=== PATIENT | female | born 1970 | race Hispanic/Latino ===

== ENCOUNTER 2017-11-24 17:19 | Emergency (ER) | payer OTHER ==
[2017-11-24] MEDS ORDERED: DEXAMETHASONE SOD PHOSPHATE 10MG/ML 1ML VIAL ONE (17:40)
[2017-11-24] MEDS ORDERED: ACETAMINOPHEN EXTRA STRENGTH 500 MG TABLET ONE (17:40)
[2017-11-24] MEDS ORDERED: IPRATROPIUM/ALBUTEROL SULFATE 3 ML SOLUTION IH ONE (17:41)
[2017-11-24 17:47] LABS: BASOPHILS % (AUTO) 0.6 % (0.0-5.0); EOSINOPHILS % (AUTO) 1.8 % (0.0-8.0); HEMATOCRIT 43.6 % (36-48); LYMPHOCYTES % (AUTO) 13.2 % (21.0-51.0); MEAN CORPUSCULAR HEMOGLOBIN 31.3 pg (27.0-33.0); MEAN CORPUSCULAR HGB CONC 35.3 g/dL (32.0-36.0); MEAN CORPUSCULAR VOLUME 88.7 fL (79-99); MONOCYTES % (AUTO) 6.2 % (3.0-13.0); NEUTROPHILS % (AUTO) 78.2 % (40.0-77.0); PLATELET COUNT (AUTO) 170 K/uL (130-400); RED BLOOD CELL COUNT(AUTO) 4.91 MIL/uL (4.00-5.50); RED CELL DISTRIBUTION WIDTH 13.5 % (11.0-15.5); WHITE BLOOD COUNT (AUTO) 10.7 K/uL (4.8-10.8)
[2017-11-24 17:59] LABS: CREATININE 0.7 mg/dL (0.5-1.5)
[2017-11-24 18:04] LABS: ALBUMIN 3.2 g/dL (3.5-5.0); BILIRUBIN,TOTAL 1.3 mg/dL (0.2-1.0); TOTAL PROTEIN, SERUM 7.3 g/dL (6.0-8.3)
[2017-11-24] MEDS ORDERED: IBUPROFEN 400 MG TABLET ONE (18:46)
== END 2017-11-24 19:11 | disposition home or self-care (01) ==
LOC: EDH 17:19
DX: J20.9 Acute bronchitis, unspecified (principal); R50.9 Fever, unspecified; I10 Essential (primary) hypertension; Z88.5 Allergy status to narcotic agent
CPT/HCPCS: 36415; 71046; 80053; 85025; 94640; 96372; 99285; J1100

== ENCOUNTER 2018-10-22 12:37 | Emergency (ER) | payer OTHER | END 2018-10-22 14:09 | disposition home or self-care (01) | LOC: EDH 12:37 | DX: R22.0 Localized swelling, mass and lump, head (principal); I10 Essential (primary) hypertension; Z88.6 Allergy status to analgesic agent | CPT/HCPCS: 99281 ==

== ENCOUNTER 2022-10-12 22:31 | Emergency (ER) | payer BC ==
[~2022-10-12] VITALS: Ht 160 cm; Wt 136.1 kg
[2022-10-12 23:25] LABS: EOSINOPHILS % (AUTO) 2.8 % (0.0-8.0); HEMATOCRIT 39.7 % (36-48); LYMPHOCYTES % (AUTO) 38.2 % (21.0-51.0); MEAN CORPUSCULAR HEMOGLOBIN 29.9 pg (27.0-33.0); MEAN CORPUSCULAR HGB CONC 33.2 g/dL (32.0-36.0); MEAN CORPUSCULAR VOLUME 89.8 fL (79-99); NEUTROPHILS % (AUTO) 48.9 % (40.0-77.0); PLATELET COUNT (AUTO) 158 K/uL (130-400); RED BLOOD CELL COUNT(AUTO) 4.42 MIL/uL (4.00-5.50); RED CELL DISTRIBUTION WIDTH 13.2 % (11.0-15.5); WHITE BLOOD COUNT (AUTO) 6.9 K/uL (4.8-10.8)
[2022-10-12] MEDS ORDERED: ONDANSETRON 4MG INJ IVP ONE (23:30)
[2022-10-12 23:43] LABS: ALBUMIN 2.4 g/dL (3.5-5.0); CREATININE 0.6 mg/dL (0.5-1.5); TOTAL PROTEIN, SERUM 5.3 g/dL (6.0-8.3)
[2022-10-12 23:45] LABS: POTASSIUM 2.8 mmol/L (3.5-5.1)
[2022-10-13] MEDS ORDERED: POTASSIUM BICARB/CIT AC 25 MEQ TABLET.EFF PO ONE
[2022-10-13] MEDS ORDERED: 0.9%NACL 1000ML 1,000 ML IV SCH (00:30)
[2022-10-13] MEDS ORDERED: KCL 20 MEQ ERTAB PO ONE (02:00)
[2022-10-13 04:33] VITALS: BP 119/65
== END 2022-10-13 04:52 | disposition home or self-care (01) ==
LOC: EDH 22:31
DX: I10 Essential (primary) hypertension (principal); E87.6 Hypokalemia; F41.9 Anxiety disorder, unspecified; Z79.899 Other long term (current) drug therapy; Z88.5 Allergy status to narcotic agent; Z90.49 Acquired absence of other specified parts of digestive tract
CPT/HCPCS: 99284; 96374; 84484; 84132 ×2; 80053; 85025; 36415 ×2; J2405; J7030

== ENCOUNTER 2022-10-29 02:09 | Emergency (ER) | payer BC ==
[~2022-10-29] VITALS: Ht 160 cm; Wt 140.2 kg
[2022-10-29 03:21] LABS: EOSINOPHILS % (AUTO) 3.1 % (0.0-8.0); HEMATOCRIT 40.8 % (36-48); LYMPHOCYTES % (AUTO) 34.5 % (21.0-51.0); MEAN CORPUSCULAR HEMOGLOBIN 29.8 pg (27.0-33.0); MEAN CORPUSCULAR HGB CONC 33.6 g/dL (32.0-36.0); MEAN CORPUSCULAR VOLUME 88.9 fL (79-99); MONOCYTES % (AUTO) 8.5 % (3.0-13.0); NEUTROPHILS % (AUTO) 52.7 % (40.0-77.0); PLATELET COUNT (AUTO) 130 K/uL (130-400); RED BLOOD CELL COUNT(AUTO) 4.59 MIL/uL (4.00-5.50); RED CELL DISTRIBUTION WIDTH 13.2 % (11.0-15.5); WHITE BLOOD COUNT (AUTO) 5.9 K/uL (4.8-10.8)
[2022-10-29 03:30] LABS: CREATININE 0.7 mg/dL (0.5-1.5); POTASSIUM 3.6 mmol/L (3.5-5.1)
[2022-10-29 03:35] LABS: TOTAL PROTEIN, SERUM 6.5 g/dL (6.0-8.3)
[2022-10-29 05:11] VITALS: BP 148/45
== END 2022-10-29 05:37 | disposition home or self-care (01) ==
LOC: EDH 02:09
DX: R07.9 Chest pain, unspecified (principal); I10 Essential (primary) hypertension; I48.91 Unspecified atrial fibrillation; Z88.8 Allergy status to other drugs, medicaments and biological substances; Z90.710 Acquired absence of both cervix and uterus; Z90.49 Acquired absence of other specified parts of digestive tract
CPT/HCPCS: 36415; 71045; 80053; 84484; 85025; 93005

== ENCOUNTER 2025-04-04 17:12 | Inpatient (IN) | payer BC ==
[~2025-04-04] VITALS: Ht 160 cm; Wt 139.7 kg
--- NOTE | 2025-04-04 17:51 | ERN ---
General Chief Complaint: Palpitations Stated Complaint: PALPITATIONS Time Seen by MD: 17:16 History of Present Illness Initial Comments 55-year-old female brought in by EMS from home for nausea or vomiting diarrhea palpitations and atrial fibrillation with RVR. Patient reports beginning earlier today she felt body aches, she has had many episodes of vomiting throughout the day as well as watery diarrhea. She reports some generalized abdominal cramping and discomfort. She has been unable to eat. EMS found stable blood pressure, but her heart rate has been ranging from 120-150, atrial fibrillation, on the monitor. Patient reports that she has been feeling palpitations on and off recently, but she has never been diagnosed with the atrial fibrillation. She takes metoprolol for hypertension. Allergies: Coded Allergies: codeine (Unverified Allergy, Unknown, 10/12/22) eucalyptus (Unverified Allergy, Unknown, 10/12/22) Past Medical History Past Medical History: A-Fib, Anxiety, Hypertension Past Surgical History: Hysterectomy, Cholecystectomy, Family History Family History: HTN Social History Social History: Negative, Lives with family ROS Dictation CONSTITUTIONAL: No chills, no fever, no weakness, no diaphoresis, no malaise. HEAD/FACE: No signs of trauma. EENT: No eye pain, no blurred vision, no tearing, no double vision, no ear pain, no ear discharge, no nose pain, no nasal congestion, no throat pain, no throat swelling, no mouth pain. RESPIRATORY: No cough, no orthopnea, no SOB, no stridor, no wheezing. CARDIOVASCULAR: No chest pain, no edema, palpitations GASTROINTESTINAL/ABDOMINAL: N generalized abdominal pain nausea vomiting and watery diarrhea. GENITOURINARY: No abnormal discharge, no dysuria, no frequent urination, no hematuria. No complaints of pain in the genitals. MUSCULOSKELETAL: No back pain, no gout, no joint pain, no joint swelling, no muscle pain, no muscle stiffness, no neck pain. INTEGUMENTARY: No change in color, no change in hair/nails, no dryness, no lesion, no lumps, no rash. NEUROLOGICAL/PSYCH: No anxiety, not depressed, no emotional problem, no headache, no numbness, no pre-existing deficit, no history of seizures, no tremors, no weakness. HEMATOLOGIC/LYMPHATIC: Not anemic, no history of blood clots, no apparent bleeding, no bruising, glands not swollen. All Systems Negative, Except as Noted. Physical Exam Physical Exam Dictation VITAL SIGNS: Reviewed. GENERAL APPEARANCE: Alert, oriented x3, no acute distress, obese. HEAD AND FACE: Non-traumatic. EYES: PERRL, pink conjunctivas, eyelid no trauma, anterior chamber clear. EARS: Pinnas intact and no signs of trauma or erythema. Ear canals clear and no discharge. TMs no erythema. NOSE: No discharge, no bleeding. OROPHARYNX: Mouth normal, teeth no caries, tongue pink. Pharynx clear, no erythema. Tonsils no exudates, no abscesses noted. Mucous membrane moist. NECK: Supple, non-tender, no thyromegaly, no masses, no JVD, no bruits. BREAST: Deferred. CHEST: No tenderness, no crepitus, no paradoxical movement, no retractions. LUNGS: Clear, well-ventilated, symmetric, no rales, no wheezing, no rhonchi, no stridor, good breath sounds bilaterally. HEART: Regular rate, regular rhythm, no murmur, no gallops. VASCULAR: No peripheral edema. ABDOMEN: Soft, positive bowel sounds, nondistended, no guarding, nontender, no rebound, no masses no hepatomegaly, no splenomegaly, no Weiss's sign, no hernias. RECTAL: Deferred. GENITAL: Deferred. NEUROLOGICAL: Normal speech, gross motor function intact, gross sensory function intact. MUSCULOSKELETAL: Neck nontender, full range of motion, back nontender, full range of motion. EXTREMITIES: Nontender, full range of motion. SKIN: Color pink, dry, no turgor, no rash, no lacerations, no abrasions, no contusions. LYMPHATICS: Deferred. Results Laboratory and Microbiology Lab and Micro Result Laboratory Tests Test 04/04/25 17:59 04/04/25 19:45 White Blood Count 6.1 K/uL (4.8-10.8) Red Blood Count 4.90 MIL/uL (4.00-5.50) Hemoglobin 15.0 g/dL (12.0-16.0) Hematocrit 44.7 % (36-48) Mean Corpuscular Volume 91.2 fL (79-99) Mean Corpuscular Hemoglobin 30.6 pg (27.0-33.0) Mean Corpuscular Hemoglobin Concent 33.6 g/dL (32.0-36.0) Red Cell Distribution Width 13.4 % (11.0-15.5) Platelet Count 148 K/uL (130-400) Mean Platelet Volume 12.0 fL (7.5-10.5) H Immature Granulocyte % (Auto) 0.3 % (0-1) Neutrophils (%) (Auto) 70.5 % (40.0-77.0) Lymphocytes (%) (Auto) 22.6 % (21.0-51.0) Monocytes (%) (Auto) 5.1 % (3.0-13.0) Eosinophils (%) (Auto) 1.0 % (0.0-8.0) Basophils (%) (Auto) 0.5 % (0.0-5.0) Neutrophils # (Auto) 4.3 K/uL (1.8-7.7) Lymphocytes # (Auto) 1.4 K/uL (1.0-4.8) Monocytes # (Auto) 0.3 K/uL (0.1-1.0) Eosinophils # (Auto) 0.06 K/uL (0.00-0.70) Basophils # (Auto) 0.03 K/uL (0.00-0.20) Absolute Immature Granulocyte (auto 0.02 K/uL (0-1) Nucleated Red Blood Cells 0.0 % (0.0-0.19) Prothrombin Time 12.3 SEC (9.6-11.6) H Prothromb Time International Ratio 1.18 (0.85-1.15) H Activated Partial Thromboplast Time 28.7 SEC (26.3-35.5) Sodium Level 140 mmol/L (136-145) Potassium Level 3.4 mmol/L (3.5-5.1) L Chloride Level 105 mmol/L (101-111) Carbon Dioxide Level 29 mmol/L (21-32) Blood Urea Nitrogen 8 mg/dL (7-18) Creatinine 0.6 mg/dL (0.5-1.0) Glomerular Filtration Rate Calc 105 mL/min (>90) Random Glucose 90 mg/dL (70-105) Lactic Acid Level 1.5 mmol/L (0.8-2.5) Total Calcium 8.8 mg/dL (8.5-10.1) Magnesium Level 1.90 mg/dL (1.80-2.40) Total Creatine Kinase 64 U/L (21-232) Troponin I High Sensitivity 29 ng/L (4-50) Lipase 20 U/L (16-77) Urine Color YELLOW (YELLOW) Urine Appearance CLOUDY (CLEAR) H Urine pH 7.0 (5.0-8.0) Urine Specific [place] 1.014 (1.001-1.031) Urine Protein NEGATIVE mg/dL (NEGATIVE) Urine Glucose (UA) NEGATIVE mg/dL (NEGATIVE) Urine Ketones NEGATIVE mg/dL (NEGATIVE) Urine Occult Blood SMALL (NEGATIVE) H Urine Nitrate 2+ (NEGATIVE) H Urine Bilirubin NEGATIVE mg/dL (NEGATIVE) Urine Urobilinogen 0.2 mg/dL (0.2-1.0) Urine Leukocyte Esterase 75 Yan[place]/uL (NEGATIVE) H Urine RBC 2-5 /HPF (0-1) H Urine WBC 11-25 /HPF (0-1) H Urine Squamous Epithelial Cells FEW /HPF (0-2) Urine Bacteria RARE /HPF (None Seen) Labs Reviewed?: Yes EKG/XRAY/US/CT/MRI CT Scan Comment REASON: Abdominal Pain ORDERING PHYSICIAN: JEAN CONROY DO PROCEDURE: ABD PEL W - CT ABDOMEN/PELVIS W/CONTRAST EXAM: CT Abdomen and Pelvis with IV contrast CLINICAL HISTORY: Pain. TECHNIQUE: Postcontrast thin collimated axial CT images of the abdomen and pelvis were obtained with sagittal and coronal reformatted images also submitted. CT scan is done according to ALARA (As Low As Reasonably Achievable). COMPARISON: None. FINDINGS: The included lungs are clear. Mild fatty liver. Status post cholecystectomy. No focal abnormality within the pancreas, spleen, adrenals, or kidneys. The urinary bladder is empty and suboptimally evaluated. Presumed post-hysterectomy status. Unremarkable left ovary. There is a 6 x 9 x 10 cm nonenhancing cyst in the right ovary without septation, calcification or enhancing mural nodule. Tiny hiatus hernia. No obvious bowel wall thickening, dilatation, or obstruction. Unremarkable appendix. Grossly unremarkable abdominal vessels. No pathological lymphadenopathy in the abdomen or pelvis. No ascites or pneumoperitoneum. No acute bony abnormality is evident. Degenerative osseous changes. IMPRESSIONS: Right ovarian cyst, recommend an ultrasound of the pelvis for further evaluation. Mild fatty liver. /Sherrill DICTATED BY: JAMIL GONZALEZ Jr., MD DATE: 04/05/25143 ELECTRONICALLY SIGNED BY: JAMIL GONZALEZ Jr., MD DATE: 04/05/25143 MDM : Differential diagnosis: Gastroenteritis, diverticulitis, colitis, cholecystitis, appendicitis, pelvic pain 8:00 p.m. patient was signed out to me by a.m. physician This is a 55-year-old morbidly obese female who presented to the emergency room with complaints of dizziness palpitations nausea vomitings diarrhea. Temperature 98.4 pulse 164 respirations 20 blood pressure 113/83 with a pulse oximetry of 98% on room air she also reported some shortness Of breath associated with the palpitations. Patient stated that she has had intermittent paroxysmal atrial fibrillation and every time she saw the physician the heart would reviewed back to normal sinus rhythm and hence she was never placed on any anticoagulation. Workup included CBC with she is with a normal limits BNP 7 is with a normal limits. Troponins were 29 lipase was 20 chest x-ray showed mild cardiomegaly but otherwise no acute infiltrates or effusions noted. CT scan of the abdomen and pelvis was requested before 8:00 p.m. and was not done until midnight. 1:[address] abdomen and pelvis resulted-large right ovarian cyst was noted but otherwise no acute abnormalities were seen. Radiologist recommended pelvic ultrasound which will be requested With pain management the heart rate has improved to 70s. I have updated the patient and her both of them on the CT scan findings and her presentation likely is related to gastroenteritis with a volume depletion, atrial fibrillation with rapid ventricular response and I recommended monitoring her for the next 24-48 hours her atrial fibrillation and determine if she needs long-term anticoagulation. She is agreeable Rationale: Tests considered and ordered secondary to shared decision making include: labs, ECG and radiology Previous outside records reviewed: Old ER visits. Risk of complication and/or morbidity or mortality of patient management: None Medications-Per medication reconciliation Need for hospitalization: Patient does meet criteria for hospitalization. Need for emergency major/minor surgery: No There are no social concerns with this patient. Prescription drug management Prescriptions will include symptomatic care Patient's prior external medical records from other ER visits were reviewed by me as indicated. Prior testing and results from previous visits were reviewed. Prior tests were taken into account with medical decision making and resource utilization, independent historian/historians were used to obtain complete medical history. I independently interpreted the test that were performed, results were reviewed by me and considered findings on radiology if ordered. Medical management and examination interpretation discussions were had by me with other qualified healthcare professionals as indicated for the patient's care. ED Course Orders Procedure Category Date Status Time 12 Lead Ekg Tracing- EKG 04/04/25 Complete Technical 17:14 Cbc With Differential LAB 04/04/25 Complete 17:19 Troponin I High LAB 04/04/25 Complete Sensitivity 17:19 Urinalysis Profile LAB 04/04/25 Complete 17:19 Ct Abdomen/Pelvis CT 04/04/25 Resulted W/Contrast 17:19 Lactated Ringers PHA 04/04/25 Complete 1000ml (Lactated 17:30 Ondansetron 4mg Inj PHA 04/04/25 Complete (Zofran 4mg Inj) 17:30 Creatine Kinase, Total LAB 04/04/25 Complete 17:19 Chest 1vw RAD 04/04/25 Resulted 17:19 Lipase LAB 04/04/25 Complete 17:19 Basic Metabolic Panel LAB 04/04/25 Complete 17:19 Prothrombin Time With LAB 04/04/25 Complete INR 17:19 Magnesium LAB 04/04/25 Complete 17:19 Partial LAB 04/04/25 Complete Thromboplastin Time 17:19 Lactic Acid LAB 04/04/25 Complete 17:19 Blood Cult ALFREDA 04/04/25 In Process 17:19 Metoprolol Tartrate PHA 04/04/25 Complete (Lopressor) 17:30 Culture Urine ALFREDA 04/04/25 Complete 20:16 Morphine 4mg Syg PHA 04/04/25 Complete (Morphine 4mg Syg) 23:00 Iohexol (Omnipaque) PHA 04/04/25 Complete 23:14 Lactated Ringers PHA 04/04/25 Complete 1000ml (Lactated 00:00 12 Lead Ekg Tracing- EKG 04/05/25 Complete Technical 02:06 Edm Admit Bridge Order ADM 04/05/25 Transmitted 02:30 Current Medications Medications (Trade) Dose Ordered Sig/Hermilo Route PRN Reason Start Time Stop Time Status Last Admin Dose Admin Iohexol (Omnipaque) 35,000 mg STK-MED ONCE IV 04/04/25 23:14 04/04/25 23:14 DC Lactated Ringer's 1,000 ml @ 0 mls/hr ONCE ONCE IV 04/04/25 17:30 04/04/25 17:31 DC 04/04/25 18:53 Lactated Ringer's (Lactated Ringers 1000ml) 1,000 ml ONCE ONCE IV 04/04/25 00:00 04/04/25 23:55 DC 04/05/25 00:10 Metoprolol Tartrate (loprESSOR) 5 mg ONCE ONCE IV 04/04/25 17:30 04/04/25 17:31 DC 04/04/25 18:52 Morphine Sulfate (morPHINE 4MG SYG) 4 mg ONCE ONCE IVP 04/04/25 23:00 04/04/25 23:01 DC 04/04/25 22:50 Ondansetron HCl (zoFRAN 4MG INJ) 4 mg ONCE ONCE IVP 04/04/25 17:30 04/04/25 17:31 DC 04/04/25 18:52 Vital Signs Date Time Temp Pulse Resp B/P (MAP) Pulse Ox O2 Delivery O2 Flow Rate FiO2 04/05/25 00:00 94 Room Air* 0 04/05/25 00:00 98.2 72 20 133/49 96 Room Air* 0 04/04/25 19:03 113 26 153/81 96 Room Air* 0 04/04/25 18:52 129 162/87 04/04/25 17:15 98.6 164 20 113/83 96 Room Air We will perform diagnostic labs, advanced imaging and administer medications according to the patient's complaint. Once the results are available, will review and personally interpreted the labs to rule out any acute life- threatening emergency the trach require immediate intervention and treatment. I will then re-evaluate the patient after treatment and diagnostic exams have return to determine whether the patient requires any further testing, can safely be discharged home or need further admission to hospital for additional treatment and evaluation. 2:30 a.m. patient accepted by covering for Dr. Lin for admission to the hospital and further management DX & DISP Disposition: Inpatient Departure Impression: Primary Impression: Atrial fibrillation with RVR Additional Impressions: Gastroenteritis, Right ovarian cyst, Dehydration, Morbid obesity with BMI of 50.0-59.9, adult Critical Time: 30 minutes (Critical Care Procedure NoteAuthorized and Performed by: meTotal critical care time: Approximately 36 minutesDue to a high probability of clinically significant, life threatening deterioration, the patient required my highest level of preparedness to intervene emergently and I personally spent this critical care time directly and personally managing the patient. This critical care time included obtaining a history; examining the patient; pulse oximetry; ordering and review of studies; arranging urgent treatment with development of a management plan; evaluation of patient's response to treatment; frequent reassessment; and, discussions with other providers.This critical care time was performed to assess and manage the high probability of imminent, life-threatening deterioration that could result in multi-organ failure. It was exclusive of separately billable procedures and treating other patients and teaching time.Please see MDM section and the rest of the note for further information on patient assessment and treatment.) Condition: Stable Additional Instructions: Patient was informed of all the diagnostic labs and procedures conducted in the emergency room today and demonstrated understanding of the results. I personally reviewed and interpreted all the diagnostic exams performed in the ER today. The patient will be admitted to the hospital for further treatment and evaluation. Disposition-admit to facility Condition-stable/guarded Course-uncertain at this time Pain status-decreased Assessment-exam unchanged Admission Certification- I certify that the patients status is appropriate and is based on my best clinical judgment and the patient's condition as documented in the medical records Referrals: ANTONIETA LYNN (PCP) JEAN CONROY DO Apr 04, 2025 17:51 EAN MALDONADO MD Apr 05, 2025 01:17
[2025-04-04 18:08] LABS: IMMATURE GRANULOCYTE ABSOLUTE 0.02 K/uL (0-1); NUCLEATED RED BLOOD CELLS 0.0 % (0.0-0.19); PLATELET COUNT (AUTO) 148 K/uL (130-400); RED BLOOD CELL COUNT(AUTO) 4.90 MIL/uL (4.00-5.50); RED CELL DISTRIBUTION WIDTH 13.4 % (11.0-15.5); WHITE BLOOD COUNT (AUTO) 6.1 K/uL (4.8-10.8)
[2025-04-04 18:16] LABS: CREATININE 0.6 mg/dL (0.5-1.0); GLOMERULAR FILTR. RATE CALC 105.0 mL/min (>90); GLUCOSE,RANDOM 90.0 mg/dL (70-105); SODIUM SERUM 140.0 mmol/L (136-145); UREA NITROGEN, BLOOD 8.0 mg/dL (7-18)
[2025-04-04 18:26] LABS: INR 1.18 (0.85-1.15)
[2025-04-04 18:28] LABS: CREATINE KINASE, TOTAL 64.0 U/L (21-232)
[2025-04-04] MEDS: LACTATED RINGERS 1000ML 1,000 ML IV ONE (18:53)
--- NOTE | 2025-04-04 19:31 | HMCIMG ---
EXAM: XR Chest, 1 View. CLINICAL HISTORY: 55 year old female with chest pain. COMPARISON: XR Chest dated 01/31/2024. FINDINGS: LUNGS: The lungs are clear. No consolidation. PLEURAL SPACES: No pleural effusion or pneumothorax. HEART: Cardiomegaly is noted. The heart size is abnormal. BONES: No acute osseous abnormality. IMPRESSION: 1. No acute findings. 2. Cardiomegaly. 3. Findings are similar to prior XR Chest dated 01/31/2024. /Honor
[2025-04-04 20:14] LABS: APPEARANCE,URINE CLOUDY (CLEAR); GLUCOSE, URINE (UA) NEGATIVE (NEGATIVE); LEUKOCYTE ESTERASE ,URINE 75 Leu/uL (NEGATIVE); NITRATE,URINE 2+ (NEGATIVE); OCCULT BLOOD,URINE SMALL (NEGATIVE)
[2025-04-04 20:15] LABS: ADD UA MICROSCOPIC YES
[2025-04-04 20:17] LABS: SQUAMOUS EPITHELIAL CELL,UR FEW /HPF (0-2)
--- NOTE | 2025-04-04 21:12 | EKG ---
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 : 1970 Requested By: JEAN CONROY Order Number: [id number] Reading MD: Sanchez Lane Measurements Intervals [place] Rate: 137 P: 0 CT: 0 QRS: 24 QRSD: 83 T: -33 QT: 315 QTc: 477 Interpretive Statements Atrial fibrillation Low voltage, precordial leads Consider anteroseptal infarct Nonspecific repol abnormality, inferior leads Compared to ECG 01/31/2024 19:52:53 Low QRS voltage now present Myocardial infarct finding now present Early repolarization now present Sinus rhythm no longer present Electronically Signed On 04-07-2025 19:50:[address] Please click the below link to view image of tracing.
[2025-04-04] MEDS ORDERED: IOHEXOL 350 MG/ML 100ML INFUS..BTL IV ONE (23:14)
[2025-04-05] VITALS: O2SAT 94
--- NOTE | 2025-04-05 | NUR ---
Home Meds pending to be brought in by patient, patient knows them by name but cannot recall dosages
[2025-04-05] MEDS: LACTATED RINGERS 1000ML IV ONE (00:10)
--- NOTE | 2025-04-05 00:45 | HMCIMG ---
EXAM: CT Abdomen and Pelvis with IV contrast CLINICAL HISTORY: Pain. TECHNIQUE: Postcontrast thin collimated axial CT images of the abdomen and pelvis were obtained with sagittal and coronal reformatted images also submitted. CT scan is done according to ALARA (As Low As Reasonably Achievable). COMPARISON: None. FINDINGS: The included lungs are clear. Mild fatty liver. Status post cholecystectomy. No focal abnormality within the pancreas, spleen, adrenals, or kidneys. The urinary bladder is empty and suboptimally evaluated. Presumed post-hysterectomy status. Unremarkable left ovary. There is a 6 x 9 x 10 cm nonenhancing cyst in the right ovary without septation, calcification or enhancing mural nodule. Tiny hiatus hernia. No obvious bowel wall thickening, dilatation, or obstruction. Unremarkable appendix. Grossly unremarkable abdominal vessels. No pathological lymphadenopathy in the abdomen or pelvis. No ascites or pneumoperitoneum. No acute bony abnormality is evident. Degenerative osseous changes. IMPRESSIONS: Right ovarian cyst, recommend an ultrasound of the pelvis for further evaluation. Mild fatty liver. /Mai
[2025-04-05] MEDS: 0.9%NACL 1000ML 1,000 ML IV SCH (03:13)
[2025-04-05 04:00] VITALS: TEMP 98.2
--- NOTE | 2025-04-05 06:39 | EKG ---
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
[2025-04-05 07:14] LABS: IMMATURE GRANULOCYTE ABSOLUTE 0.01 K/uL (0-1); NUCLEATED RED BLOOD CELLS 0.0 % (0.0-0.19); PLATELET COUNT (AUTO) 131 K/uL (130-400); RED BLOOD CELL COUNT(AUTO) 4.39 MIL/uL (4.00-5.50); RED CELL DISTRIBUTION WIDTH 13.5 % (11.0-15.5); WHITE BLOOD COUNT (AUTO) 5.0 K/uL (4.8-10.8)
[2025-04-05 07:24] LABS: CREATININE 0.6 mg/dL (0.5-1.0); GLOMERULAR FILTR. RATE CALC 105.0 mL/min (>90); GLUCOSE,RANDOM 95.0 mg/dL (70-105); SODIUM SERUM 140.0 mmol/L (136-145); UREA NITROGEN, BLOOD 9.0 mg/dL (7-18)
[2025-04-05] MEDS: ENOXAPARIN SODIUM 30 MG/0.3 ML SQ SCH (09:04)
--- NOTE | 2025-04-05 14:45 | NUR ---
DCP:HOME Pt currently lives with her [place] [phone]. Pt does not have any DME, home health, or provider services. Pt states that she is able to complete ADLs independently. PCP is Dr. Kulwinder Lin and uses [facility] for any RX needs. At [place] pt will want to go home and family can assist with transportation. Addendum: 04/05/25 at 1449 by TIFFANIE MURDOCK SS Amended: Links added.
--- NOTE | 2025-04-05 21:19 | NUR ---
REPORT GIVEN TO SANTIAGO WHITE. PATIENT WILL BE TRANSFERRED TO ROOM 427. PATIENT [id number], RESPIRATIONS EVEN AND UNLABORED. NO S/S OF DISTRESS. ROOM AIR. AFEBRILE.
[2025-04-05 21:30] VITALS: BP 176/82; PULSE 59; RESP 16; TEMP 98.3
--- NOTE | 2025-04-05 21:44 | NUR ---
ABNORMAL POTASSIUM AND MAGNESIUM LEVELS CONTACTED DR. GRAY DUE TO NOTICING THAT PATIENT'S POTASSIUM AND MAGNESIUM LEVELS WERE BELOW HOSPITAL STANDARDS. ADVISED DR. GRAY OF PATIENT NEEDING PROTOCOL COVERAGE. PER DR. GRAY: OKAY TO START PATIENT ON POTASSIUM AND MAGNESIUM PROTOCOLS. ORDERS NOTED AND CARRIED OUT.
[2025-04-05] MEDS ORDERED: PoTASSium chl 10% ELIXIR 20MEQ 20 MEQ/15 ML UDCUP PO PRN (22:00)
[2025-04-05] MEDS ORDERED: METO-391 PO (22:32)
[2025-04-05] MEDS ORDERED: LEVO50TA11 PO (22:32)
--- NOTE | 2025-04-05 22:44 | NUR ---
HIGH BLOOD PRESSURE CONTACTED DR. GRAY FOR PATIENT'S ELEVATED BLOOD PRESSURE UPON ADMISSION SEE EMR. ADVISED NO PRN MEDICATION ON FILE AND REQUESTED TO RESUME HOME MEDICATIONS. PER DR. GRAY: HYDRALAZINE 10MG IVP EVERY 8 HOURS NEEDED FOR SYSTOLIC BLOOD PRESSURE OVER 150. ORDER NOTED AND CARRIED OUT.
--- NOTE | 2025-04-05 23:16 | HP ---
DATE OF SERVICE: 04/05/2025 HISTORY AND PHYSICAL PRESENTING COMPLAINT: Nausea, vomiting, diarrhea. HISTORY OF PRESENT ILLNESS: A 55-year-old female with history of morbid obesity, anxiety disorder, hypertension, presents to the hospital with nausea, diarrhea and palpitations. The patient's symptoms started on the day of admission. The patient denied hematochezia. Has some urinary symptoms. No hematuria. The patient presented to the emergency room and was found heart rate of 150. EKG shows AFib with RVR. The patient denies before and never saw a cardiology in the past. No sick contact. No recent travel. Urinalysis was found to be negative marginally low at 3.4. PAST MEDICAL HISTORY: 1. Hypertension. 2. Morbid obesity. 3. Anxiety disorder. PAST SURGICAL HISTORY: 1. Hysterectomy. 2. Cholecystectomy. 3. section. ALLERGIES: CODEINE. HOME MEDICATIONS: Reviewed. SOCIAL HISTORY: No alcohol or tobacco or illicit drug use. FAMILY HISTORY: Noncontributory. REVIEW OF SYSTEMS: Greater than 10 systems were reviewed, negative except as documented above. PHYSICAL EXAMINATION: GENERAL: On examination, young female, awake. VITAL SIGNS: Temperature 97.9, pulse 59, respiratory rate 18, blood pressure 116/70. EYES: No icterus. Pupils are equal and reactive. HENT: No oral thrush. Moist oral mucosa. NECK: Supple. No JVD or thyromegaly. LUNGS: Good air entry. No rales. No rhonchi. CARDIOVASCULAR: S1 and S2. Regular. ABDOMEN: Morbidly obese, soft, nontender. Bowel sound is present. CENTRAL NERVOUS SYSTEM: Awake, alert and oriented x3. No focal deficits. SKIN: No rashes. LYMPHATIC: No peripheral lymphadenopathy. BACK: No deformity. No pressure ulcer. MUSCULOSKELETAL: No joint swelling, erythema or tenderness. LABORATORY DATA: Sodium 140, potassium 4.4, BUN 8, creatinine 0.6. WBC 6.1, hemoglobin 15, platelet 148. Urinalysis; WBC 25 and leukocyte esterase 75. RADIOLOGY: CT of the abdomen and pelvis shows right ovarian cyst. ASSESSMENT: A 55-year-old female presented with nausea, vomiting and palpitations. CURRENT PROBLEMS INCLUDE: 1. Urinary tract infection. 2. Infectious gastroenteritis. 3. Atrial fibrillation. 4. Hypokalemia. 5. Dehydration. 6. Morbid obesity. 7. Hypertension. PLAN: 1. Admit the patient to medical floor with telemetry. 2. Start the patient on Lopressor. 3. Cardiology evaluation. 4. Start the patient on ceftriaxone. 5. Start the patient on aspirin. 6. Start the patient on Lovenox. 7. Monitor electrolytes and correct as needed. 8. Home medication will be reconciled. 9. The patient will be followed up closely. TID: [id number] RECEIPT: [id number] [facility]
[2025-04-05 23:20] VITALS: BP 163/80; PULSE 61; RESP 17; TEMP 98.1
[2025-04-06] VITALS (7 sets, daily range): BP systolic 118–178; BP diastolic 57–92; PULSE 55–68; RESP 17–20; TEMP 97.6–98.5; O2SAT 96
[2025-04-06 03:56] LABS: NUCLEATED RED BLOOD CELLS 0.0 % (0.0-0.19); PLATELET COUNT (AUTO) 115.0 K/uL (130-400); RED BLOOD CELL COUNT(AUTO) 4.18 MIL/uL (4.00-5.50); RED CELL DISTRIBUTION WIDTH 13.2 % (11.0-15.5); WHITE BLOOD COUNT (AUTO) 4.3 K/uL (4.8-10.8)
[2025-04-06 04:07] LABS: CREATININE 0.6 mg/dL (0.5-1.0); GLOMERULAR FILTR. RATE CALC 105.0 mL/min (>90); GLUCOSE,RANDOM 118.0 mg/dL (70-105); SODIUM SERUM 140.0 mmol/L (136-145); UREA NITROGEN, BLOOD 8.0 mg/dL (7-18)
[2025-04-06] MEDS: PoTASSium chloRIDE 20MEQ ER 20 MEQ ERTAB PO PRN (04:20)
[2025-04-06] MEDS: MAGNESIUM 2GM PREMIX 50ML 50 ML IV PRN (04:20)
--- NOTE | 2025-04-06 17:06 | PN ---
INFECTIOUS DISEASE PROGRESS NOTE Date of Service: Apr 06, 2025 SUBJECTIVE: This is a 55-year-old female patient who presented to the hospital with chief complaint of nausea, vomiting and diarrhea. In the ED patient was found with a heart rate in the 160s and AFib with RVR. Patient was given IV metoprolol. A urinalysis was positive and patient has been started on ceftriaxone. Today patient denying diarrhea, nausea and vomiting. Patient did reported feeling short of breaths on exertion. Cardiology has been consulted and pending evaluation. We will monitor patient closely. PHYSICAL EXAM EYES: Anicteric. Pupils equal and reactive. HENT: No oral thrush seen, moist Oral mucosa NECK: Supple, no JVD or thyromegaly. LUNGS: Good air entry. No rales, no rhonchi. Short of breath on exertion. CARDIOVASCULAR: S1, S2 regular. No murmur heard. New onset AFib. ABDOMEN: Soft, non tender, bowel sounds present, no organomegaly CENTRAL NERVOUS SYSTEM: Awake, alert, oriented x 3. SKIN: No rashes, no swelling. LYMPHATICS: No peripheral lymphadenopathy. MUSCULOSKELETAL: No joint swelling, erythema or tenderness. EXTREMITIES: No cyanosis or clubbing BACK: No deformity, no pressure ulcer. GENITOURINARY: No dysuria or hematuria Vital Sign (Last 12 Hours) 04/06/25 04/06/25 04/06/25 07:50 12:30 14:20 Temp 98.1 98.2 Pulse 60 55 Resp 17 20 B/P (MAP) 162/79 178/92 178/92 Pulse Ox 96 98 O2 Delivery Room Air Room Air LABS: Laboratory: Test 04/06/25 03:37 04/05/25 06:53 04/04/25 19:45 04/04/25 17:59 Range/Units White Blood Count 4.3 L 4.8-10.8 K/uL Red Blood Count 4.18 4.00-5.50 MIL/uL Hemoglobin 12.9 12.0-16.0 g/dL Hematocrit 37.8 36-48 % Mean Corpuscular Volume 90.4 79-99 fL Mean Corpuscular Hemoglobin 30.9 27.0-33.0 pg Mean Corpuscular Hemoglobin Concent 34.1 32.0-36.0 g/dL Red Cell Distribution Width 13.2 11.0-15.5 % Platelet Count 115 L 130-400 K/uL Mean Platelet Volume 12.0 H 7.5-10.5 fL Nucleated Red Blood Cells 0.0 0.0-0.19 % Sodium Level 140 136-145 mmol/L Potassium Level 3.1 L 3.5-5.1 mmol/L Chloride Level 106 101-111 mmol/L Carbon Dioxide Level 28 21-32 mmol/L Blood Urea Nitrogen 8 7-18 mg/dL Creatinine 0.6 0.5-1.0 mg/dL Glomerular Filtration Rate Calc 105 >90 mL/min Random Glucose 118 H 70-105 mg/dL Total Calcium 8.2 L 8.5-10.1 mg/dL Magnesium Level 1.90 1.80-2.40 mg/dL Immature Granulocyte % (Auto) 0.2 0-1 % Neutrophils (%) (Auto) 61.7 40.0-77.0 % Lymphocytes (%) (Auto) 28.3 21.0-51.0 % Monocytes (%) (Auto) 8.4 3.0-13.0 % Eosinophils (%) (Auto) 1.2 0.0-8.0 % Basophils (%) (Auto) 0.2 0.0-5.0 % Neutrophils # (Auto) 3.1 1.8-7.7 K/uL Lymphocytes # (Auto) 1.4 1.0-4.8 K/uL Monocytes # (Auto) 0.4 0.1-1.0 K/uL Eosinophils # (Auto) 0.06 0.00-0.70 K/uL Basophils # (Auto) 0.01 0.00-0.20 K/uL Absolute Immature Granulocyte (auto 0.01 0-1 K/uL Urine Color YELLOW YELLOW Urine Appearance CLOUDY H CLEAR Urine pH 7.0 5.0-8.0 Urine Specific [place] 1.014 1.001-1.031 Urine Protein NEGATIVE NEGATIVE mg/dL Urine Glucose (UA) NEGATIVE NEGATIVE mg/dL Urine Ketones NEGATIVE NEGATIVE mg/dL Urine Occult Blood SMALL H NEGATIVE Urine Nitrate 2+ H NEGATIVE Urine Bilirubin NEGATIVE NEGATIVE mg/dL Urine Urobilinogen 0.2 0.2-1.0 mg/dL Urine Leukocyte Esterase 75 H NEGATIVE Yanira/uL Urine RBC 2-5 H 0-1 /HPF Urine WBC 11-25 H 0-1 /HPF Urine Squamous Epithelial Cells FEW 0-2 /HPF Urine Bacteria RARE None Seen /HPF Prothrombin Time 12.3 H 9.6-11.6 SEC Prothromb Time International Ratio 1.18 H 0.85-1.15 Activated Partial Thromboplast Time 28.7 26.3-35.5 SEC Lactic Acid Level 1.5 0.8-2.5 mmol/L Total Creatine Kinase 64 21-232 U/L Troponin I High Sensitivity 29 4-50 ng/L Lipase 20 16-77 U/L DIAGNOSTICS / RADIOLOGY: PATIENT: CARMITA GARG ACCT: [id number] LOC: 4D U: [id number] AGE/SX: 55/F ROOM: [facility] RE04/05/[address]: ALMA GRAY MD : 1970 BED: 1 DIS: STATUS: ADM IN TLOC: SPEC: [id number] SHELIA: 04/04/25 STATUS: COMP REQ: [id number] RECD: 04/05/25-[address]: JEAN CONROY DO SOURCE: [facility] [place] ENTR: 04/05/25 [facility] DR: ASHU SEGUNDO MD SPDESC: CLEAN CAT EAN MALDONADO MD ORDERED: AERO ID & SENS Procedure Result Maritza Date-Time AEROBIC ID & SENSITIVITIES Final 04/06/25-0707 MRL COLONY DESCRIPTION: DAY 1: COLONY COUNT: >100,000 CFU/ML GRAM NEGATIVE RODS IDENTIFICATION AND SENSITIVITY TO FOLLOW KLEBSIELLA PNEUMONIAE K PNEUMO M.I.C. RX --------- ---- AZTREONAM <=4 S CEFAZOLIN <=2 S CEFTAZIDIME/AVIBACTAM <=8 S GENTAMICIN <=2 S LEVOFLOXACIN <=0.5 S NITROFURANTOIN 64 I MEROPENEM <=1 S PIPERACILLIN/TAZOBACTAM 16 S* TRIMETHOPRIM/SUFLAMETHOXAZOLE <=2/38 S ASSESSMENT: Urinary tract infection with Klebsiella pneumoniae. Hypokalemia. Infectious gastroenteritis. New onset AFib. Dehydration. Morbid obesity. PLAN: Continue ceftriaxone. We will follow up on the final culture results. Continue pain management. Continue IV fluids. Grapple Crew Leader has been consulted and pending evaluation. 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 This case was reviewed and discussed with my supervising physician Dr. Gray and the above assessment and plan was formulated and agreed upon. ATTESTATION BY PHYSICIAN I have seen and examined the patient. I reviewed the documentation, medical decision making, and treatment plan as noted by the mid-level provider above. I agree with the findings and plan of care. ALMA GRAY MD, MIRTA L [facility] Apr 06, 2025 17:06
--- NOTE | 2025-04-06 18:16 | HMCSR ---
APPROVED REPORT EXAM: Two-dimensional and M-mode echocardiogram with Doppler and color Doppler. INDICATION ICD: New onset of atrial fibrillation 2D Dimensions RVDd4.9 cmLVEF(%)48.2 (>50%)LVED Vol(simp.)76.0 mL IVSd1.3 (0.7-1.1cm)FS(%)24 %LVES Vol(simp.)35.0 mL LVDd4.3 (3.8-5.6cm)LA (2D)5.2 (1.6-4.0cm)LVEF(%, simp.)54 % PWd1.1 (0.7-1.1cm)Ao Root(2D)3.0 (2.0-3.7cm) IVSs1.1 cmLVOT diam2.1 (1.8-2.4cm) LVDs3.3 (2.5-4.0cm)IVC diam2.7 cm PWs1.3 cm Deformation Strain Apical 4-13.3 % Apical 2-14.3 % Apical 3-12.6 % Global Strain-13.4 % M-Mode Dimensions EPSS0.7 cm LA (MM)5.5 (1.6-4.0cm) Ao Root(MM)2.7 (2.0-3.7cm) Aortic Valve AoV Vmax1.2 m/Jb Peak GR6.0 mmHgLVOT Vmax1.0 m/s AoV VTI0.3 mAo Mean GR3.4 mmHgLVOT VTI0.22 m LANCE (VMAX)2.83 cm2AVA (VTI) 3.0 cm2 Mitral Valve MV E Rbur646.0 cm/sDECEL Hnqs239 ms MV A Vmax28.7 cm/sP 1/2 T45 ms E/A ratio3.6MVA (PHT)4.9 cm2 TDI E/E' Ijsmxo61.7E/E' Dzcycja49.9 Medial E' Peak V5.03 cm/sLateral E' Peak V7.00 cm/s Pulmonary Valve PV Vmax0.8 m/sPV VTI0.21 mPV Mean GR1.7 mmHg PV Peak GR2.6 mmHg Tricuspid Valve TR Vmax1.8 m/sRAP (EST) 15 pcNhDMFA38.3 mmHg TR Peak GR12.3 mmHg Left Ventricle The left ventricle is normal size. GLS -13.0% There is normal left ventricular wall thickness. LVEF i s 50-55%. Indeterminate diastolic dysfunction. Right Ventricle The right ventricle is severely dilated. The right ventricular systolic function is normal. Atria The left atrium size is normal. The right atrium is mildly dilated. Aortic Valve The aortic valve is normal in structure. No aortic regurgitation is present. There is no aortic valvu lar stenosis. Mitral Valve The mitral valve is normal in structure. There is no mitral valve regurgitation noted. There is no mi tral valve stenosis. Tricuspid Valve The tricuspid valve is normal in structure. There is trace of tricuspid valve regurgitation noted. Pulmonic Valve Pulmonic valve is not well visualized. There is no pulmonic valvular regurgitation. Great Vessels The aortic root is normal in size. IVC is dilated and collapses <50% with inspiration. Pericardium There is no pericardial effusion. Other Information Quality : Adequate Conclusion The left ventricle is normal size. LVEF is 50-55%. Indeterminate diastolic dysfunction. The right ventricle is severely dilated. The right ventricular systolic function is normal. The left atrium size is normal. The right atrium is mildly dilated. No valvular pathology There is no pericardial effusion.
[2025-04-06] MEDS: MELATONIN 5 MG TABLET PO SCH (21:19)
[2025-04-07 04:00] VITALS: BP 130/48; PULSE 58; RESP 20; TEMP 98
[2025-04-07 05:56] LABS: NUCLEATED RED BLOOD CELLS 0.0 % (0.0-0.19); PLATELET COUNT (AUTO) 132.0 K/uL (130-400); RED BLOOD CELL COUNT(AUTO) 4.25 MIL/uL (4.00-5.50); RED CELL DISTRIBUTION WIDTH 13.6 % (11.0-15.5); WHITE BLOOD COUNT (AUTO) 4.7 K/uL (4.8-10.8)
[2025-04-07 06:29] LABS: CREATININE 0.5 mg/dL (0.5-1.0); GLOMERULAR FILTR. RATE CALC 110.0 mL/min (>90); GLUCOSE,RANDOM 95.0 mg/dL (70-105); SODIUM SERUM 140.0 mmol/L (136-145); UREA NITROGEN, BLOOD 9.0 mg/dL (7-18)
[2025-04-07 08:00] VITALS: BP 152/79; PULSE 59; RESP 19; TEMP 98.2
[2025-04-07 12:19] VITALS: BP 143/74; PULSE 67; RESP 18; TEMP 97.9
[2025-04-07] MEDS: REGADENOSON 0.4 MG/5 ML PF SYG IVP ONE (12:42)
--- NOTE | 2025-04-07 14:55 | PN ---
INFECTIOUS DISEASE PROGRESS NOTE Date of Service: Apr 07, 2025 SUBJECTIVE: This is a 55-year-old female patient who was seen and examined at bedside in room 427. Patient is awake, alert and oriented x3. Patient is sitting up on the bedside chair and tolerating well. A 2D echo done yesterday showed LVEF of 50-55% and during rounding today patient is pending a stress test. We will continue on ceftriaxone for UTI. We will monitor patient closely. PHYSICAL EXAM EYES: Anicteric. Pupils equal and reactive. HENT: No oral thrush seen, moist Oral mucosa NECK: Supple, no JVD or thyromegaly. LUNGS: Good air entry. No rales, no rhonchi. Short of breath on exertion. CARDIOVASCULAR: S1, S2 regular. No murmur heard. New onset AFib. ABDOMEN: Soft, non tender, bowel sounds present, no organomegaly CENTRAL NERVOUS SYSTEM: Awake, alert, oriented x 3. SKIN: No rashes, no swelling. LYMPHATICS: No peripheral lymphadenopathy. MUSCULOSKELETAL: No joint swelling, erythema or tenderness. EXTREMITIES: No cyanosis or clubbing BACK: No deformity, no pressure ulcer. GENITOURINARY: No dysuria or hematuria Vital Sign (Last 12 Hours) 04/07/25 04/07/25 04/07/25 04:00 08:00 12:19 Temp 98.1 98.2 97.9 Pulse 58 59 67 Resp 20 19 18 B/P (MAP) 130/48 152/79 143/74 Pulse Ox 95 94 98 O2 Delivery Room Air Room Air Room Air Intake & Output (last 24hrs) 04/06/25 04/06/25 04/07/25 15:00 23:00 07:00 Intake Total 900 ml 1400 ml Balance 900 ml 1400 ml LABS: Laboratory: Test 04/07/25 05:44 Range/Units White Blood Count 4.7 L 4.8-10.8 K/uL Red Blood Count 4.25 4.00-5.50 MIL/uL Hemoglobin 12.9 12.0-16.0 g/dL Hematocrit 38.7 36-48 % Mean Corpuscular Volume 91.1 79-99 fL Mean Corpuscular Hemoglobin 30.4 27.0-33.0 pg Mean Corpuscular Hemoglobin Concent 33.3 32.0-36.0 g/dL Red Cell Distribution Width 13.6 11.0-15.5 % Platelet Count 132 130-400 K/uL Mean Platelet Volume 12.3 H 7.5-10.5 fL Nucleated Red Blood Cells 0.0 0.0-0.19 % Sodium Level 140 136-145 mmol/L Potassium Level 3.6 3.5-5.1 mmol/L Chloride Level 108 101-111 mmol/L Carbon Dioxide Level 29 21-32 mmol/L Blood Urea Nitrogen 9 7-18 mg/dL Creatinine 0.5 0.5-1.0 mg/dL Glomerular Filtration Rate Calc 110 >90 mL/min Random Glucose 95 70-105 mg/dL Total Calcium 8.2 L 8.5-10.1 mg/dL Magnesium Level 2.20 1.80-2.40 mg/dL Thyroid Stimulating Hormone (TSH) 5.05 H 0.36-3.74 uIU/mL Free Triiodothyronine (T3) pg/mL 2.50 2.18-3.98 pg/mL ASSESSMENT: Urinary tract infection with Klebsiella pneumoniae. Hypokalemia, improving. Infectious gastroenteritis. New onset AFib. Dehydration. Morbid obesity. PLAN: Continue ceftriaxone. We will follow up on the final culture results. Continue pain management. Continue IV fluids. Manager Pharmaceutical has being consulted and patient is pending a stress test. 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 This case was reviewed and discussed with my supervising physician Dr. Gray and the above assessment and plan was formulated and agreed upon. ATTESTATION BY PHYSICIAN I have seen and examined the patient. I reviewed the documentation, medical decision making, and treatment plan as noted by the mid-level provider above. I agree with the findings and plan of care. ALMA GRAY MD, MIRTA L [facility] Apr 07, 2025 14:55
[2025-04-07 16:06] VITALS: BP 152/76; PULSE 60; RESP 18; TEMP 97.6
[2025-04-07 20:00] VITALS: BP 167/72; PULSE 63; RESP 18; TEMP 98.3
[2025-04-08] VITALS: BP 160/73; PULSE 73; RESP 16; TEMP 98.4
[2025-04-08 03:58] LABS: NUCLEATED RED BLOOD CELLS 0.0 % (0.0-0.19); PLATELET COUNT (AUTO) 128.0 K/uL (130-400); RED BLOOD CELL COUNT(AUTO) 4.18 MIL/uL (4.00-5.50); RED CELL DISTRIBUTION WIDTH 13.3 % (11.0-15.5); WHITE BLOOD COUNT (AUTO) 5.0 K/uL (4.8-10.8)
[2025-04-08 04:00] VITALS: BP 135/80; PULSE 68; RESP 18; TEMP 98.2
[2025-04-08 04:09] LABS: CREATININE 0.5 mg/dL (0.5-1.0); GLOMERULAR FILTR. RATE CALC 110.0 mL/min (>90); GLUCOSE,RANDOM 99.0 mg/dL (70-105); SODIUM SERUM 140.0 mmol/L (136-145); UREA NITROGEN, BLOOD 10.0 mg/dL (7-18)
--- NOTE | 2025-04-08 05:33 | CONS ---
REASON FOR CONSULTATION: To evaluate palpation. HISTORY OF PRESENT ILLNESS: The patient is a 55-year-old morbidly obese female with a history of hypertension, who has been having palpitations on and off. She became persistent when she came to the emergency room and was noted to be in AFib with rapid ventricular rates. The patient denies any chest pain or shortness of breath to me. She does have exertional shortness of breath. REVIEW OF SYSTEMS: GENERAL: No history of weight loss, weight gain. LUNGS: No history of cough or sputum. CARDIOVASCULAR: As above. HOME MEDICATIONS: Listed in the chart. ALLERGIES: No known drug allergies. SOCIAL HISTORY: Denies smoking, alcohol, drugs. FAMILY HISTORY: Noncontributory. PHYSICAL EXAMINATION: GENERAL: A 55-year-old female, alert and oriented x 3. No pallor, no cyanosis, no jaundice, no lymphadenopathy, no pitting edema. VITAL SIGNS: Pulse is 70, blood pressure is 130/70. HEENT: Normocephalic and atraumatic. Pupils equal, round, reactive to light. NECK: Supple. No thyromegaly. No carotid bruit. No masses. LUNGS: Clear to percussion and auscultation. CARDIOVASCULAR: Peripheral pulses are diminished. No groin pain. No abdominal pain. No carotid bruit. No JVD. S1, S2 heard. No S3. No S4. No murmurs, no rubs, no other adventitious sounds. ABDOMEN: Benign. CENTRAL NERVOUS SYSTEM: Nonfocal exam. EXTREMITIES: No pitting edema. LABORATORY DATA: Labs have all been reviewed. FINAL IMPRESSION: 1. Paroxysmal atrial fibrillation. Etiology of above. Underlying CAD needs to be ruled out. Echocardiogram was unremarkable. Obesity related and sleep apnea related is a possibility all related to hypertension. 2. Morbid obesity. 3. Hypertension. RECOMMENDATION: 1. CHADS-VASc score is high. 2. I would recommend anticoagulants. 3. If AFib recurs, we will send her to for possible AFib ablation to consider the same early on. 4. Stress test done earlier today revealed no evidence of ischemia or infarction. Further recommendations based on how she does. I will follow up with her on an outpatient basis. TID: [id number] RECEIPT: [id number]
[2025-04-08 08:00] VITALS: BP 154/74; PULSE 56; RESP 18; TEMP 98.1; O2SAT 94
[2025-04-08 11:46] VITALS: BP 154/81; PULSE 57; RESP 16; TEMP 98
[2025-04-08 16:00] VITALS: BP 174/89; PULSE 55; RESP 16; TEMP 98.1
--- NOTE | 2025-04-08 17:29 | DS ---
Discharge Summary DIAGNOSE(S): UTI, Afib HOSPITAL COURSE SUMMARY: A 55-year-old female with history of morbid obesity, anxiety disorder, hypertension, presents to the hospital with nausea, diarrhea and palpitations. The patient's symptoms started on the day of admission. The patient presented to the emergency room and was found heart rate of 150. EKG shows AFib with RVR. Patient was admitted for further evaluated. She was seen by strap buckler machine and recommendations were given. Cardio recommended anticoagulants and to continue antiarrhythmic agents. Patient continued with Rocephin during hospital stay. Urine culture positive for klebsiella penumonie. Patient will be follow up with cardiology and recommendation will follow. GUEST HISTORY CLERK(S): Cardiology PROCEDURE(S)/TREATMENT(S): [] Stress test echocardiogram ultrasound PROBLEM(S): 1. Urinary tract infection. 2. Infectious gastroenteritis. 3. Atrial fibrillation. 4. Hypokalemia. 5. Dehydration. 6. Morbid obesity. 7. Hypertension. DISCHARGE INSTRUCTIONS: Follow up with PCP Keflex 500mg TID 5 days oral follow up with cardiology continue eliquis as prescribed continue metoprolol continue with strap buckler machine recommendations This case has been discussed with my supervising physician DR. Pond. The case has been discussed and agreed upon. Home Meds Reported Medications Metoprolol Succinate (Metoprolol Succinate) 50 Mg Tab.er.24h, 1 TAB PO DAILY 04/05/25 Levothyroxine Sodium (Levothyroxine Sodium) 50 Mcg Tablet, 1 TAB PO DAILY 04/05/25 Time spent arranging discharge: 1-30 minutes DECLAN GILBERT Apr 08, 2025 17:29
== END 2025-04-08 18:00 | disposition home or self-care (01) | DRG 392 ==
LOC: EDH 17:12 → EDHIP 04-05 02:31 → 4DH 04-05 21:30
PROVIDERS: ADMIT Internal Medicine Infectious Disease; ATTEND Internal Medicine Infectious Disease
PROC: 4A02XM4 Measurement of Cardiac Total Activity, External Approach (ICD-10-PCS; principal; 2025-04-07)
PROC: 3E073KZ Introduction of Other Diagnostic Substance into Coronary Artery, Percutaneous Approach (ICD-10-PCS; 2025-04-07)
DX: A09 Infectious gastroenteritis and colitis, unspecified (principal); N39.0 Urinary tract infection, site not specified; Z68.43 Body mass index [BMI] 50.0-59.9, adult; I48.0 Paroxysmal atrial fibrillation; E87.6 Hypokalemia; E86.0 Dehydration; E66.01 Morbid (severe) obesity due to excess calories; B96.1 Klebsiella pneumoniae [K. pneumoniae] as the cause of diseases classified elsewhere; F41.9 Anxiety disorder, unspecified; I10 Essential (primary) hypertension; N83.201 Unspecified ovarian cyst, right side; Z82.49 Family history of ischemic heart disease and other diseases of the circulatory system; Z90.710 Acquired absence of both cervix and uterus; Z90.49 Acquired absence of other specified parts of digestive tract
CPT/HCPCS: 36415; 71045; 74177; 78452; 80048; 81001; 82550; 83605; 83690; 83735; 84443; 84481; 84484; 85025; 85027; 85610; 85730; 87040; 87086; 87186; 93005; 93017; 93306; 93356; 96374; 96375; 99291; A9500; G0378; J0360; J0696; J1650; J2270; J2405; J2785; J3475; J3490; J7030; Q9967

== ENCOUNTER 2025-04-18 21:10 | Emergency (ER) | payer BC ==
[~2025-04-18] VITALS: Ht 160 cm; Wt 137.4 kg
[~2025-04-18 21:10] MED LIST: LEVO50TA11 PO; METO-391 PO
[2025-04-18 21:13] VITALS: BP 177/75; PULSE 59; RESP 20; TEMP 98
--- NOTE | 2025-04-18 22:12 | HMCIMG ---
EXAM: CT Head Without Intravenous Contrast. CLINICAL HISTORY: 55-year-old female with head injury. TECHNIQUE: Axial computed tomography images of the head/brain without intravenous contrast. Dose reduction technique was used including one or more of the following: automated exposure control, adjustment of mA and kV according to patient size, and/or iterative reconstruction. CONTRAST: None. COMPARISON: CT Head W/O Contrast from 01/31/2024 at 8:59 PM. FINDINGS: BRAIN: No acute intraparenchymal hemorrhage. No mass lesion. No CT evidence for acute territorial infarct. No midline shift or extra-axial collection. VENTRICLES: No hydrocephalus. ORBITS: The orbits are unremarkable. SINUSES AND MASTOIDS: The paranasal sinuses and mastoid air cells are clear. SOFT TISSUES: No significant facial or scalp soft tissue swelling evident. No radiopaque foreign body is seen. BONES: No acute skull fracture. IMPRESSION: 1. No acute intracranial abnormality related to the head injury. 2. Findings similar to prior CT Head W/O Contrast from 01/31/2024 at 8:59 PM. /[place]
--- NOTE | 2025-04-18 22:58 | ERN ---
General Chief Complaint: Headache Stated Complaint: C/O HEADACHE Time Seen by MD: 21:26 Time Seen by Midlevel: 21:26 Source: patient History of Present Illness Initial Comments 55-year-old female presenting to the ER with a headache. He reports being on Eliquis twice a day and states she accidentally hit her head with a metal grate yesterday. Today she had a headache all day which concerned her so she decided to report to the ER for further evaluation. Allergies: Coded Allergies: codeine (Unverified Allergy, Unknown, 10/12/22) eucalyptus (Unverified Allergy, Unknown, 10/12/22) Home Meds Reported Medications Metoprolol Succinate (Metoprolol Succinate) 50 Mg Tab.er.24h, 1 TAB PO DAILY 04/05/25 Levothyroxine Sodium (Levothyroxine Sodium) 50 Mcg Tablet, 1 TAB PO DAILY 04/05/25 Past Medical History Past Medical History: A-Fib, Hypertension Past Surgical History: Hysterectomy, Cholecystectomy, Family History Family History: HTN Social History Social History: Negative, Lives with family ROS Dictation CONSTITUTIONAL: Negative except for HPI HEAD/FACE: Negative except for HPI EENT: Negative except for HPI RESPIRATORY: Negative except for HPI GASTROINTESTINAL/ABDOMINAL: Negative except for HPI GENITOURINARY: Negative except for HPI MUSCULOSKELETAL: Negative except for HPI INTEGUMENTARY: Negative except for HPI NEUROLOGICAL/PSYCH: Negative except for HPI HEMATOLOGIC/LYMPHATIC: Negative except for HPI All Systems Negative, Except as noted above. 13 point review of systems assessed and all negative except for above. Physical Exam Physical Exam Dictation Vital Signs reviewed General Appearance: Alert, oriented x 3, no acute distress, well developed, nourished. Head and Face: non-traumatic. Eyes: PERRL, pink conjunctivas, eyelid no trauma, anterior chamber with arcus senilis. Ears: Pinnas intact and no signs of trauma or erythema ear canals clear and no d ischarge TM no erythema Nose: No discharge, no bleeding. Oropharynx: Mouth normal, tongue pink, pharynx clear,no erythema, tonsils no exudates, no abscesses noted, mucous membrane moist Neck: Supple, non-tender, no thyromegaly, no masses, no JVD, no bruits Breast:Deferred Chest:No tenderness, no crepitus, no paradoxical movement, no retractions Lungs:Clear, well-ventilated, symmetric, no rales, no wheezing, no rhonchi, no stridor, good breath sounds bilaterally Heart: Regular rate, regular rhythm, no murmur, no gallops Vascular: no peripheral edema, Abdomen: Soft, positive bowel sounds, nondistended, no guarding, nontender, no rebound, no masses no hepatomegaly, no splenomegaly, no Weiss's sign, no hernias. Rectal: Deferred Genital: Deferred Neurological: Normal speech, motor function intact, sensory function intact Musculoskeletal: Neck nontender, full range of motion, back nontender, full range of motion, Extremities: nontender, full range of motion Skin: Color pink, dry, no turgor, no rash, no lacerations, no abrasions, no contusions. Lymphatic: Deferred MDM MDM: Differential diagnosis: Intracranial bleed, closed head injury, skull fracture There are no social concerns with this patient. Prescription drug management Prescriptions will include: None Medical management and examination interpretation discussions were had by me with other qualified healthcare professionals as indicated for the patient's care. ED Course Orders Procedure Category Date Status Time Ct Head/Brain W/O CT 04/18/25 Resulted Contrast 21:26 Vital Signs Date Time Temp Pulse Resp B/P (MAP) Pulse Ox O2 Delivery O2 Flow Rate FiO2 04/18/25 21:13 98.1 59 20 177/75 96 Room Air DX & DISP Disposition: Discharge Departure Impression: Primary Impression: Closed head injury Condition: Stable Additional Instructions: Your CT scan of the head does not show any evidence an intracranial bleed or skull fracture. You may take Tylenol as needed pain. Return to the ER if you develop any new or worsening Referrals: ASHU SEGUNDO MD (PCP) Time of Disposition: 22:57 I have reviewed the case, and I agree with, Diagnosis and Plan I performed the substantive portion of the visit. I have reviewed and personally made and approve the management plan that is documented in the note by myself or the JOSEFA. I acknowledge for responsibility for the patient's management plan. LATRICE LOWRY Apr 18, 2025 22:58
== END 2025-04-18 23:00 | disposition home or self-care (01) ==
LOC: EDH 21:10
DX: S09.90XA Unspecified injury of head, initial encounter (principal); I48.91 Unspecified atrial fibrillation; I10 Essential (primary) hypertension; Z79.01 Long term (current) use of anticoagulants; Z79.890 Hormone replacement therapy; Z79.899 Other long term (current) drug therapy; Z82.49 Family history of ischemic heart disease and other diseases of the circulatory system; Z88.5 Allergy status to narcotic agent; Z90.49 Acquired absence of other specified parts of digestive tract; Z90.710 Acquired absence of both cervix and uterus; X58.XXXA Exposure to other specified factors, initial encounter; Y93.89 Activity, other specified; Y92.89 Other specified places as the place of occurrence of the external cause; Y99.8 Other external cause status
CPT/HCPCS: 70450; 99284

== ENCOUNTER 2025-04-27 12:43 | Emergency (ER) | payer BC ==
[~2025-04-27] VITALS: Ht 160 cm; Wt 137.4 kg
[2025-04-27 13:02] LABS: IMMATURE GRANULOCYTE ABSOLUTE 0.02 K/uL (0-1); NUCLEATED RED BLOOD CELLS 0.0 % (0.0-0.19); PLATELET COUNT (AUTO) 161 K/uL (130-400); RED BLOOD CELL COUNT(AUTO) 4.81 MIL/uL (4.00-5.50); RED CELL DISTRIBUTION WIDTH 13.4 % (11.0-15.5); WHITE BLOOD COUNT (AUTO) 5.8 K/uL (4.8-10.8)
[2025-04-27 13:10] LABS: CREATININE 0.6 mg/dL (0.5-1.0); GLOMERULAR FILTR. RATE CALC 105.0 mL/min (>90); GLUCOSE,RANDOM 97.0 mg/dL (70-105); SODIUM SERUM 144.0 mmol/L (136-145); UREA NITROGEN, BLOOD 10.0 mg/dL (7-18)
--- NOTE | 2025-04-27 13:55 | ERN ---
General Chief Complaint: Multiple Complaints Stated Complaint: MULTIPLE COMPLAINTS Time Seen by MD: 12:44 Source: patient History of Present Illness Initial Comments Patient is a 55-year-old female coming in complaining of chest pressure. Patient states she has a history of atrial fibrillation in his currently using medication for heart rate control. Along with this she states that she is also taking Eliquis. Allergies: Coded Allergies: codeine (Unverified Allergy, Unknown, 10/12/22) eucalyptus (Unverified Allergy, Unknown, 10/12/22) Home Meds Reported Medications Metoprolol Succinate (Metoprolol Succinate) 50 Mg Tab.er.24h, 1 TAB PO DAILY 04/05/25 Levothyroxine Sodium (Levothyroxine Sodium) 50 Mcg Tablet, 1 TAB PO DAILY 04/05/25 Past Medical History Past Medical History: A-Fib, Anxiety, Hypertension Past Surgical History: Hysterectomy, Cholecystectomy, Family History Family History: HTN Social History Social History: Negative, Lives with family ROS Dictation CONSTITUTIONAL: No chills, no fever, no weakness, no diaphoresis, no malaise. HEAD/FACE: No signs of trauma. EENT: No eye pain, no blurred vision, no tearing, no double vision, no ear pain, no ear discharge, no nose pain, no nasal congestion, no throat pain, no throat swelling, no mouth pain. RESPIRATORY: No cough, no orthopnea, no SOB, no stridor, no wheezing. CARDIOVASCULAR: No chest pain, no edema, no palpitations, no syncope. GASTROINTESTINAL/ABDOMINAL: No abdominal pain, no constipation, no diarrhea, no nausea, no vomiting. GENITOURINARY: No abnormal discharge, no dysuria, no frequent urination, no hematuria. No complaints of pain in the genitals. MUSCULOSKELETAL: No back pain, no gout, no joint pain, no joint swelling, no muscle pain, no muscle stiffness, no neck pain. INTEGUMENTARY: No change in color, no change in hair/nails, no dryness, no lesion, no lumps, no rash. NEUROLOGICAL/PSYCH: No anxiety, not depressed, no emotional problem, no headache, no numbness, no pre-existing deficit, no history of seizures, no tremors, no weakness. HEMATOLOGIC/LYMPHATIC: Not anemic, no history of blood clots, no apparent bleeding, no bruising, glands not swollen. All Systems Negative, Except as Noted. Physical Exam Physical Exam Dictation VITAL SIGNS: Reviewed. GENERAL APPEARANCE: Alert, oriented x3, no acute distress, obese. HEAD AND FACE: Non-traumatic. EYES: PERRL, pink conjunctivas, eyelid no trauma, anterior chamber clear. EARS: Pinnas intact and no signs of trauma or erythema. Ear canals clear and no discharge. TMs no erythema. NOSE: No discharge, no bleeding. OROPHARYNX: Mouth normal, teeth no caries, tongue pink. Pharynx clear, no erythema. Tonsils no exudates, no abscesses noted. Mucous membrane moist. NECK: Supple, non-tender, no thyromegaly, no masses, no JVD, no bruits. BREAST: Deferred. CHEST: No tenderness, no crepitus, no paradoxical movement, no retractions. LUNGS: Clear, well-ventilated, symmetric, no rales, no wheezing, no rhonchi, no stridor, good breath sounds bilaterally. HEART: Regular rate, regular rhythm, no murmur, no gallops. VASCULAR: No peripheral edema. ABDOMEN: Soft, positive bowel sounds, nondistended, no guarding, nontender, no rebound, no masses no hepatomegaly, no splenomegaly, no Weiss's sign, no hernias. RECTAL: Deferred. GENITAL: Deferred. NEUROLOGICAL: Normal speech, gross motor function intact, gross sensory function intact. MUSCULOSKELETAL: Neck nontender, full range of motion, back nontender, full range of motion. EXTREMITIES: Nontender, full range of motion. SKIN: Color pink, dry, no turgor, no rash, no lacerations, no abrasions, no contusions. LYMPHATICS: Deferred. Results Laboratory and Microbiology Lab and Micro Result Laboratory Tests Test 04/27/25 12:55 04/27/25 14:08 White Blood Count 5.8 K/uL (4.8-10.8) Red Blood Count 4.81 MIL/uL (4.00-5.50) Hemoglobin 14.7 g/dL (12.0-16.0) Hematocrit 43.9 % (36-48) Mean Corpuscular Volume 91.3 fL (79-99) Mean Corpuscular Hemoglobin 30.6 pg (27.0-33.0) Mean Corpuscular Hemoglobin Concent 33.5 g/dL (32.0-36.0) Red Cell Distribution Width 13.4 % (11.0-15.5) Platelet Count 161 K/uL (130-400) Mean Platelet Volume 11.8 fL (7.5-10.5) H Immature Granulocyte % (Auto) 0.3 % (0-1) Neutrophils (%) (Auto) 49.7 % (40.0-77.0) Lymphocytes (%) (Auto) 38.3 % (21.0-51.0) Monocytes (%) (Auto) 8.0 % (3.0-13.0) Eosinophils (%) (Auto) 2.8 % (0.0-8.0) Basophils (%) (Auto) 0.9 % (0.0-5.0) Neutrophils # (Auto) 2.9 K/uL (1.8-7.7) Lymphocytes # (Auto) 2.2 K/uL (1.0-4.8) Monocytes # (Auto) 0.5 K/uL (0.1-1.0) Eosinophils # (Auto) 0.16 K/uL (0.00-0.70) Basophils # (Auto) 0.05 K/uL (0.00-0.20) Absolute Immature Granulocyte (auto 0.02 K/uL (0-1) Nucleated Red Blood Cells 0.0 % (0.0-0.19) Sodium Level 144 mmol/L (136-145) Potassium Level 4.2 mmol/L (3.5-5.1) Chloride Level 108 mmol/L (101-111) Carbon Dioxide Level 29 mmol/L (21-32) Blood Urea Nitrogen 10 mg/dL (7-18) Creatinine 0.6 mg/dL (0.5-1.0) Glomerular Filtration Rate Calc 105 mL/min (>90) Random Glucose 97 mg/dL (70-105) Total Calcium 8.8 mg/dL (8.5-10.1) Troponin I High Sensitivity 9 ng/L (4-50) Urine Color LIGHT-YELLOW (YELLOW) Urine Appearance CLEAR (CLEAR) Urine pH 6.5 (5.0-8.0) Urine Specific [place] 1.017 (1.001-1.031) Urine Protein NEGATIVE mg/dL (NEGATIVE) Urine Glucose (UA) NEGATIVE mg/dL (NEGATIVE) Urine Ketones NEGATIVE mg/dL (NEGATIVE) Urine Occult Blood SMALL (NEGATIVE) H Urine Nitrate NEGATIVE (NEGATIVE) Urine Bilirubin NEGATIVE mg/dL (NEGATIVE) Urine Urobilinogen 0.2 mg/dL (0.2-1.0) Urine Leukocyte Esterase 25 [place]/uL (NEGATIVE) H Urine RBC 2-5 /HPF (0-1) H Urine WBC 2-5 /HPF (0-1) H Urine Squamous Epithelial Cells FEW /HPF (0-2) Urine Bacteria None /HPF (None Seen) Labs Reviewed?: Yes EKG/XRAY/US/CT/MRI EKG Comment 04/27/2025 time 1:45 p.m. Ventricular rate 48 Sinus bradycardia SC [address] wave elevation or depression MDM MDM: Differential diagnosis:anxiety, uti, hx of afibb Rationale: Tests considered and ordered secondary to shared decision making include: Previous outside records reviewed: Old ER visits. Risk of complication and/or morbidity or mortality of patient management: None Medications-Per medication reconciliation Need for hospitalization: Patient does not meet criteria for hospitalization. Need for emergency major/minor surgery: No In his is a 55-year-old female coming in to be re-evaluated she was diagnosed with AFib and felt heart palpitations earlier today. She came in for further evaluation. Patient does has a history of anxiety per family member and per p atient. Laboratory workup which includes cardiac workup has been negative. Patient will be discharged in stable condition with a diagnosis of anxiety and mild leuko esterase positive UA consistent with a mild UTI. ED Course Orders Procedure Category Date Status Time Cbc With Differential LAB 04/27/25 Complete 12:47 Chest 1vw RAD 04/27/25 Taken 12:47 12 Lead Ekg Tracing- EKG 04/27/25 Logged Technical 12:47 Troponin I High LAB 04/27/25 Complete Sensitivity 12:47 Urinalysis Profile LAB 04/27/25 Complete 12:47 Basic Metabolic Panel LAB 04/27/25 Complete 12:47 Vital Signs Date Time Temp Pulse Resp B/P (MAP) Pulse Ox O2 Delivery O2 Flow Rate FiO2 04/27/25 12:44 98.2 89 16 168/70 97 Room Air 0 DX & DISP Disposition: Discharge Departure Impression: Primary Impression: Anxiety disorder Additional Impression: UTI (urinary tract infection) Condition: Stable Scripts Nitrofurantoin Monohyd/M-Cryst (Macrobid 100 mg Capsule) 100 Mg Capsule 1 CAP PO BID for 7 Days, #14 CAP 0 Refills Prov: DELGADO WALLER MD 04/27/25 Additional Instructions: FOLLOW-UP WITH PRIMARY CARE PROVIDER IN 1 TO 2 DAYS. TAKE MEDICATIONS DIRECTED HERE IN THE EMERGENCY ROOM. OKAY TO CONTINUE HOME MEDICATIONS UNLESS OTHERWISE DISCUSSED DURING YOUR VISIT IN THE EMERGENCY ROOM TODAY. RETURN TO YOUR NEAREST EMERGENCY ROOM IF SYMPTOMS WORSEN OR IF THERE IS NO IMPROVEMENT. CALL 911 IF YOU NEED IMMEDIATE ASSISTANCE. TAKE TYLENOL [id number] NEEDED AND IF NO CONTRAINDICATIONS ARE PRESENT. INCREASE ORAL HYDRATION. A WOUND CULTURE OR URINE CULTURE WAS ORDERED HERE IN THE EMERGENCY ROOM DEPARTMENT PLEASE FOLLOW-UP WITH PRIMARY CARE PROVIDER AND ADVISE THEM TO GET REPORTS FROM OUR FACILITY. IF YOU HAD ANY DANIELITO WRAP/SPLINTS THAT WERE APPLIED HERE, PLEASE DO NOT REMOVE THEM UNTIL YOU SEE YOUR PRIMARY CARE OR SPECIALTY. Referrals: Referrals: ASHU SEGUNDO MD (PCP) Time of Disposition: 14:54 DELGADO WALLER MD Apr 27, 2025 13:55
[2025-04-27 14:17] LABS: APPEARANCE,URINE CLEAR (CLEAR); GLUCOSE, URINE (UA) NEGATIVE (NEGATIVE); LEUKOCYTE ESTERASE ,URINE 25 Leu/uL (NEGATIVE); NITRATE,URINE NEGATIVE (NEGATIVE); OCCULT BLOOD,URINE SMALL (NEGATIVE)
[2025-04-27 14:22] LABS: ADD UA MICROSCOPIC YES
[2025-04-27 14:33] LABS: SQUAMOUS EPITHELIAL CELL,UR FEW /HPF (0-2)
[2025-04-27] MEDS ORDERED: NITR100C4 PO (14:56)
--- NOTE | 2025-04-27 15:12 | HMCIMG ---
EXAM: CR Chest, 1 View. CLINICAL HISTORY: CP. COMPARISON: Prior radiograph dated 05-Apr-2025. FINDINGS: LUNGS: The lungs show no infiltrate, consolidation, or other acute finding. PLEURAL SPACES: No pleural effusion or pneumothorax. MEDIASTINUM: Cardiac size and mediastinal contours within normal limits. BONES: No aggressive appearing osseous lesion seen. IMPRESSION: 1. No acute cardiopulmonary findings. /[place]
--- NOTE | 2025-04-27 16:21 | EKG ---
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
[2025-04-27 16:34] VITALS: BP 166/85; PULSE 86; RESP 18; TEMP 97.1; O2SAT 98
== END 2025-04-27 16:47 | disposition home or self-care (01) ==
LOC: EDH 12:43
DX: F41.9 Anxiety disorder, unspecified (principal); N39.0 Urinary tract infection, site not specified; I48.91 Unspecified atrial fibrillation; I10 Essential (primary) hypertension; Z88.5 Allergy status to narcotic agent; Z79.899 Other long term (current) drug therapy; Z90.49 Acquired absence of other specified parts of digestive tract; Z90.710 Acquired absence of both cervix and uterus; Z79.01 Long term (current) use of anticoagulants
CPT/HCPCS: 36415; 71045; 80048; 84484; 85025; 93005; 99284

== ENCOUNTER 2025-05-15 15:36 | Emergency (ER) | payer BC ==
[~2025-05-15] VITALS: Ht 160 cm; Wt 136.1 kg
[~2025-05-15 15:36] MED LIST changes: +NITR100C4 PO
[2025-05-15 15:43] VITALS: BP 145/56; PULSE 58; RESP 20; TEMP 97.6; O2SAT 98
--- NOTE | 2025-05-15 15:44 | ERN ---
General Chief Complaint: Hypertension Stated Complaint: HYPERTENSION Time Seen by MD: 15:42 Source: patient History of Present Illness Initial Comments PATIENT HAS BEEN SHE WILL FEMALE COMING IN COMPLAINING OF HIGH BLOOD PRESSURE. PER PATIENT SHE CHECKED HER BLOOD PRESSURE WITH THE MACHINE ON HER FOREARM AND STATED IT READ HIGH SO SHE CAME IN FOR FURTHER EVALUATION. Allergies: Coded Allergies: codeine (Unverified Allergy, Unknown, 10/12/22) eucalyptus (Unverified Allergy, Unknown, 10/12/22) Home Meds Active Scripts Nitrofurantoin Monohyd/M-Cryst (Macrobid 100 mg Capsule) 100 Mg Capsule, 1 CAP PO BID for 7 Days, #14 CAP 0 Refills Prov:DELGADO WALLER MD 04/27/25 Reported Medications Metoprolol Succinate (Metoprolol Succinate) 50 Mg Tab.er.24h, 1 TAB PO DAILY 04/05/25 Levothyroxine Sodium (Levothyroxine Sodium) 50 Mcg Tablet, 1 TAB PO DAILY 04/05/25 Past Medical History Past Medical History: A-Fib, Anxiety, Hypertension Past Surgical History: Hysterectomy, Cholecystectomy, Family History Family History: HTN Social History Social History: Negative, Lives with family ROS Dictation CONSTITUTIONAL: NO CHILLS, NO FEVER, NO WEAKNESS, NO DIAPHORESIS, NO MALAISE. HEAD/FACE: NO SIGNS OF TRAUMA. EENT: NO EYE PAIN, NO BLURRED VISION, NO TEARING, NO DOUBLE VISION, NO EAR PAIN, NO EAR DISCHARGE, NO NOSE PAIN, NO NASAL CONGESTION, NO THROAT PAIN, NO THROAT SWELLING, NO MOUTH PAIN. RESPIRATORY: NO COUGH, NO ORTHOPNEA, NO SOB, NO STRIDOR, NO WHEEZING. CARDIOVASCULAR: NO CHEST PAIN, NO EDEMA, NO PALPITATIONS, NO SYNCOPE. GASTROINTESTINAL/ABDOMINAL: NO ABDOMINAL PAIN, NO CONSTIPATION, NO DIARRHEA, NO NAUSEA, NO VOMITING. GENITOURINARY: NO ABNORMAL DISCHARGE, NO DYSURIA, NO FREQUENT URINATION, NO HEMATURIA. NO COMPLAINTS OF PAIN IN THE GENITALS. MUSCULOSKELETAL: NO BACK PAIN, NO GOUT, NO JOINT PAIN, NO JOINT SWELLING, NO MUSCLE PAIN, NO MUSCLE STIFFNESS, NO NECK PAIN. INTEGUMENTARY: NO CHANGE IN COLOR, NO CHANGE IN HAIR/NAILS, NO DRYNESS, NO LESION, NO LUMPS, NO RASH. NEUROLOGICAL/PSYCH: NO ANXIETY, NOT DEPRESSED, NO EMOTIONAL PROBLEM, NO HEADACHE, NO NUMBNESS, NO PRE-EXISTING DEFICIT, NO HISTORY OF SEIZURES, NO TREMORS, NO WEAKNESS. HEMATOLOGIC/LYMPHATIC: NOT ANEMIC, NO HISTORY OF BLOOD CLOTS, NO APPARENT BLEEDING, NO BRUISING, GLANDS NOT SWOLLEN. ALL SYSTEMS NEGATIVE, EXCEPT NOTED. Physical Exam Physical Exam Dictation VITAL SIGNS: REVIEWED. GENERAL APPEARANCE: ALERT, ORIENTED X3, NO ACUTE DISTRESS, OBESE. HEAD AND FACE: NON-TRAUMATIC. EYES: PERRL, PINK CONJUNCTIVAS, EYELID NO TRAUMA, ANTERIOR CHAMBER CLEAR. EARS: PINNAS INTACT AND NO SIGNS OF TRAUMA OR ERYTHEMA. EAR CANALS CLEAR AND NO DISCHARGE. TMS NO ERYTHEMA. NOSE: NO DISCHARGE, NO BLEEDING. OROPHARYNX: MOUTH NORMAL, TEETH NO CARIES, TONGUE PINK. PHARYNX CLEAR, NO ERYTHEMA. TONSILS NO EXUDATES, NO ABSCESSES NOTED. MUCOUS MEMBRANE MOIST. NECK: SUPPLE, NON-TENDER, NO THYROMEGALY, NO MASSES, NO JVD, NO BRUITS. BREAST: DEFERRED. CHEST: NO TENDERNESS, NO CREPITUS, NO PARADOXICAL MOVEMENT, NO RETRACTIONS. LUNGS: CLEAR, WELL-VENTILATED, SYMMETRIC, NO RALES, NO WHEEZING, NO RHONCHI, NO STRIDOR, GOOD BREATH SOUNDS BILATERALLY. HEART: REGULAR RATE, REGULAR RHYTHM, NO MURMUR, NO GALLOPS. VASCULAR: NO PERIPHERAL EDEMA. ABDOMEN: SOFT, POSITIVE BOWEL SOUNDS, NONDISTENDED, NO GUARDING, NONTENDER, NO REBOUND, NO MASSES NO HEPATOMEGALY, NO SPLENOMEGALY, NO LITTLEJOHN'S SIGN, NO HERNIAS. RECTAL: DEFERRED. GENITAL: DEFERRED. NEUROLOGICAL: NORMAL SPEECH, GROSS MOTOR FUNCTION INTACT, GROSS SENSORY FUNCTION INTACT. MUSCULOSKELETAL: NECK NONTENDER, FULL RANGE OF MOTION, BACK NONTENDER, FULL RANGE OF MOTION. EXTREMITIES: NONTENDER, FULL RANGE OF MOTION. SKIN: COLOR PINK, DRY, NO TURGOR, NO RASH, NO LACERATIONS, NO ABRASIONS, NO CONTUSIONS. LYMPHATICS: DEFERRED. Results Laboratory and Microbiology Labs Reviewed?: Yes MDM MDM: DIFFERENTIAL DIAGNOSIS: HYPERTENSION, BLOOD PRESSURE CUFF READING RATIONALE: TESTS CONSIDERED AND ORDERED SECONDARY TO SHARED DECISION MAKING INCLUDE: PREVIOUS OUTSIDE RECORDS REVIEWED: OLD ER VISITS. RISK OF COMPLICATION AND/OR MORBIDITY OR MORTALITY OF PATIENT MANAGEMENT: NONE MEDICATIONS-PER MEDICATION RECONCILIATION NEED FOR HOSPITALIZATION: PATIENT DOES NOT MEET CRITERIA FOR HOSPITALIZATION. NEED FOR EMERGENCY MAJOR/MINOR SURGERY: NO PATIENT IS A 55-YEAR-OLD [facility]. PER PATIENT SHE CHECKED HER BLOOD PRESSURE EARLIER TODAY USING A BLOOD PRESSURE CUFF THAT GOES ON THE FOREARM NOTICED IT WAS HIGH CAME IN FOR FURTHER EVALUATION. PATIENT IS ASYMPTOMATIC EVALUATED HER TRIAGE BLOOD PRESSURE WAS WITHIN NORMAL LIMITS. PATIENT WILL BE DISCHARGED IN STABLE CONDITION I DID ADVISE HER TO REPLACE HER BLOOD PRESSURE CUFF MACHINE WITH ONE IN THE ARM. SHE STATES SHE WILL DO THAT. DID ALSO ADVISED HER TO CONTINUE TAKING HER MEDICATIONS CONTINUE WITH HER PHYSICAL ACTIVITY INDICATED BY PCP. DX & DISP Disposition: Discharge Departure Impression: Primary Impression: Elevated blood pressure reading with diagnosis of hypertension Condition: Stable Additional Instructions: FOLLOW-UP WITH PRIMARY CARE PROVIDER IN 1 TO 2 DAYS. TAKE MEDICATIONS DIRECTED HERE IN THE EMERGENCY ROOM. OKAY TO CONTINUE HOME MEDICATIONS UNLESS OTHERWISE DISCUSSED DURING YOUR VISIT IN THE EMERGENCY ROOM TODAY. RETURN TO YOUR NEAREST EMERGENCY ROOM IF SYMPTOMS WORSEN OR IF THERE IS NO IMPROVEMENT. CALL 911 IF YOU NEED IMMEDIATE ASSISTANCE. TAKE TYLENOL [id number] NEEDED AND IF NO CONTRAINDICATIONS ARE PRESENT. INCREASE ORAL HYDRATION. A WOUND CULTURE OR URINE CULTURE WAS ORDERED HERE IN THE EMERGENCY ROOM DEPARTMENT PLEASE FOLLOW-UP WITH PRIMARY CARE PROVIDER AND ADVISE THEM TO GET REPORTS FROM OUR FACILITY. IF YOU HAD ANY DANIELITO WRAP/SPLINTS THAT WERE APPLIED HERE, PLEASE DO NOT REMOVE THEM UNTIL YOU SEE YOUR PRIMARY CARE OR SPECIALTY. REFERRALS: Referrals: ASHU SEGUNDO MD (PCP) Time of Disposition: 15:44 DELGADO WALLER MD May 15, 2025 15:44
== END 2025-05-15 15:56 | disposition home or self-care (01) ==
LOC: EDH 15:36
DX: I10 Essential (primary) hypertension (principal); I48.91 Unspecified atrial fibrillation; F41.9 Anxiety disorder, unspecified; Z88.5 Allergy status to narcotic agent; Z79.899 Other long term (current) drug therapy; Z79.890 Hormone replacement therapy; Z90.49 Acquired absence of other specified parts of digestive tract; Z90.710 Acquired absence of both cervix and uterus
CPT/HCPCS: 99282